=== PATIENT | male | born 1930 | race Caucasian/White ===

== ENCOUNTER 2017-03-08 03:34 | Emergency (ER) | payer OTHER, MEDICARE ==
[~2017-03-08 03:34] MED LIST: ASPIR 8181 M1 PO; CREON DR 12,001 EAC1 PO; CREON1 CAPSULE PO; ENALAPRIL MALEAT5 MG PO; KEPPRA250 MG PO; LIPITOR80 MG PO; LOPRESSOR12.5 MG PO; LOPRESSOR25 MG PO; LOW DOSE ASPIRI81 M1 PO; MULTI VITAMIN1 EACH PO; MULTIVITAMIN1 EAC1 PO; PRAVACHOL80 MG PO; PRILOSEC20 MG PO; PROTONIX40 MG PO; TRILIPIX45 MG PO; VITAMIN D31000 UNIT PO; ZESTRIL5 MG PO
== END 2017-03-08 03:36 ==
LOC: EME → EDBD 03:34 → EME 03:36
DX: I46.9 Cardiac arrest, cause unspecified (principal); I12.9 Hypertensive chronic kidney disease with stage 1 through stage 4 chronic kidney disease, or unspecified chronic kidney disease; N18.3 Chronic kidney disease, stage 3 (moderate); E78.5 Hyperlipidemia, unspecified; Z79.82 Long term (current) use of aspirin
CPT/HCPCS: 99281; 99284; J0171; J0282